=== PATIENT | male | born 1955 | race Asian ===

== ENCOUNTER 2020-07-15 18:45 | Emergency (ER) | payer OTHER ==
[~2020-07-15] VITALS: Ht 177.8 cm; Wt 93.9 kg
--- NOTE | 2020-07-15 18:49 | NUR ---
PT [facility] STORE FOR A WITNESSED SYNCOPAL EPISODE BY . 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 PLACED ON MONITOR. STABLE VITALS. AWAITING MD MYERS.
--- NOTE | 2020-07-15 18:53 | NUR ---
ANGELICA JAVED AT BEDSIDE FOR EVAL.
[2020-07-15] MEDS ORDERED: IV NS 0.9% 1,000 ML BAG IV ONE (19:00)
--- NOTE | 2020-07-15 19:09 | NUR ---
CALLED LAB REGARDING COVID SWAB
--- NOTE | 2020-07-15 19:22 | NUR ---
ESTELLAID SWABBED, SENT TO LAB.
--- NOTE | 2020-07-15 19:27 | NUR ---
DIE GRINDER AT BEDSIDE FOR BLOOD DRAW.
[2020-07-15 19:50] LABS: CALCIUM, SERUM 7.5 mg/dL (8.5-10.1); CARBON DIOXIDE 25 mmol/L (21-32); CHLORIDE 103 mmol/L (98-107); CREATININE 1.2 mg/dL (0.6-1.3); GLUCOSE 113 mg/dL (74-106); POTASSIUM 4.2 mmol/L (3.5-5.1); SODIUM SERUM 136 mmol/L (136-145); UREA NITROGEN, BLOOD 12 mg/dL (7-18)
[2020-07-15 19:56] LABS: ALANINE AMINOTRANSFERASE 33 U/L (12-78); ALBUMIN 2.7 g/dL (3.4-5.0); ALKALINE PHOSPHATASE 57 U/L (46-116); ASPARTATE AMINOTRANSFERASE 25 U/L (15-37); BILIRUBIN,DIRECT 0.2 mg/dL (0.0-0.2); BILIRUBIN,TOTAL 0.6 mg/dL (0.2-1.0); TOTAL PROTEIN, SERUM 6.6 g/dL (6.4-8.2)
[2020-07-15 20:17] LABS: BASOPHILS % (AUTO) 0.2 % (0.0-2.0); EOSINOPHILS % (AUTO) 0.9 % (0.0-6.0); HEMATOCRIT 42 % (39-51); HEMOGLOBIN 13.8 g/dL (13.5-17.5); LYMPHOCYTES # (AUTO) 0.8 /CMM (0.8-4.8); LYMPHOCYTES % (AUTO) 17.1 % (20.0-44.0); MEAN CORPUSCULAR HGB CONC 33 g/dl (31.0-36.0); MEAN CORPUSCULAR VOLUME 86 fL (80-96); MONOCYTES # (AUTO) 0.7 /CMM (0.1-1.30); MONOCYTES % (AUTO) 13.9 % (2.0-12.0); NEUTROPHILS # (AUTO) 3.3 /CMM (1.8-8.9); NEUTROPHILS % (AUTO) 67.9 % (43.0-81.0); PLATELET COUNT (AUTO) 147 /CMM (150-450); RED BLOOD CELL COUNT(AUTO) 4.93 MIL/uL (4.5-6.0); WHITE BLOOD COUNT (AUTO) 4.8 K/uL (4.3-11.0)
--- NOTE | 2020-07-15 20:31 | NUR ---
CALLED LAB REGARDING URINE SAMPLE
--- NOTE | 2020-07-15 20:59 | NUR ---
ANGÉLICA EPRP PAGED PER LUIS JAVED.
[2020-07-15 21:10] LABS: BILIRUBIN,URINE NEGATIVE (NEGATIVE); COLOR,URINE YELLOW (YELLOW); LEUKOCYTE ESTERASE ,URINE NEGATIVE (NEGATIVE); NITRITE, URINE NEGATIVE (NEGATIVE); PROTEIN,URINE >=300 mg/dl (NEGATIVE); UGLUCOSE NEGATIVE (NEGATIVE)
[2020-07-15 21:16] LABS: WBC,URINE 0-2 /HPF (0-3)
[2020-07-15 21:17] LABS: BACTERIA,URINE RARE /HPF (None Seen); HYALINE CASTS, URINE FEW /LPF (None Seen); MUCUS,URINE Few /LPF (None Seen); SQUAMOUS EPITHELIAL CELL,UR 0-2 /HPF (None Seen)
--- NOTE | 2020-07-15 22:42 | NUR ---
[facility] MD RAJAN [facility] [id number] NUMBER FOR REPROT ALS PRN [id number]
--- NOTE | 2020-07-15 23:05 | NUR ---
CALLED TO GIVE REPORT, WAS TOLD TO CALL BACK WHEN PRN AT BEDSIDE
[2020-07-15 23:15] VITALS: BP 127/83
--- NOTE | 2020-07-15 23:26 | NUR ---
REPORT GIVEN TO CHARGE NURSE, NURSE NAME JAY CROCKER.
--- NOTE | 2020-07-15 23:49 | NUR ---
REPORT GIVEN TO LINDSAY TRANSFER. PT TRANSFERED. 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 UPDATED FAMILY REGARDING PLAN OF CARE.
--- NOTE | 2020-07-16 21:00 | NUR ---
CALL [facility] FROM LAB REGARDING POSITIVE COVID 19 PCR. [facility] ICU NOTIFIED AND RESULT FAXED.
== END 2020-07-15 23:38 | disposition short-term general hospital (02) ==
LOC: ER 18:53
DX: U07.1 COVID-19 (principal); R55 Syncope and collapse; R91.8 Other nonspecific abnormal finding of lung field; D69.6 Thrombocytopenia, unspecified; E83.51 Hypocalcemia
CPT/HCPCS: 36415; 71045; 80048; 80076; 81001; 82962; 84484; 85025; 85730; 87081; 87426; 93005; 96360; 99285; C9803 ×2; J7030; U0003